=== PATIENT | male | born 2000 | race Caucasian/White ===

== ENCOUNTER 2024-06-25 10:46 | Inpatient (IN) | payer OTHER ==
[~2024-06-25] VITALS: Ht 170.2 cm; Wt 88.2 kg
[2024-06-25 11:35] LABS: HEMOGLOBIN 16.8 g/dl (13.5-17.5); MEAN CORPUSCULAR HGB CONC 34.3 g/dl (32.0-36.5); MEAN CORPUSCULAR VOLUME 87.5 fl (80.0-96.0); PLATELET COUNT, AUTOMATED 257 10^3/uL (150-450); WHITE BLOOD COUNT 6.3 10^3/uL (4.0-10.0)
[2024-06-25 12:00] LABS: AMPHETAMINES LEVEL URINE NEGATIVE (NEGATIVE); BARBITURATES URINE NEGATIVE (NEGATIVE); BENZODIAZEPINES URINE NEGATIVE (NEGATIVE); CANNABINOIDS URINE NEGATIVE (NEGATIVE); COCAINE METABOLITE URINE NEGATIVE (NEGATIVE); METHADONE URINE NEGATIVE (NEGATIVE); OPIATES URINE NEGATIVE (NEGATIVE); PHENCYCLIDINE URINE NEGATIVE (NEGATIVE)
[2024-06-25 12:02] LABS: ETHYL ALCOHOL (ETHANOL) 0.004 % (0.000-0.010)
[2024-06-25 12:04] LABS: SALICYLATE LEVEL < 3.0 MG/DL (<30)
[2024-06-25 12:05] LABS: ALBUMIN 4.7 G/DL (3.2-5.2); ALKALINE PHOSPHATASE 91 U/L (40-129); ALT/SGPT 32 U/L (7.0-40); AST/SGOT 17 U/L (<34); BILIRUBIN,DIRECT 0.2 MG/DL (<0.4); BILIRUBIN,TOTAL 0.6 MG/DL (0.3-1.2); BLOOD UREA NITROGEN 13 MG/DL (9-23); CALCIUM LEVEL 9.5 MG/DL (8.5-10.1); CARBON DIOXIDE LEVEL 28 MMOL/L (20-31); CHLORIDE LEVEL 105 MMOL/L (98-107); CREATININE FOR GFR 0.93 MG/DL (0.70-1.30); GLOMERULAR FILTRATION RATE > 60.0 (>60); GLUCOSE, FASTING 67 MG/DL (60-100); POTASSIUM SERUM 3.8 MMOL/L (3.5-5.1); SODIUM LEVEL 141 MMOL/L (136-145)
[2024-06-25 12:07] LABS: THYROID STIMULATING HORMONE 1.109 uIU/ML (0.55-4.78)
[2024-06-25] MEDS ORDERED: LEXA1TAB2 PO (16:44)
[2024-06-25] MEDS ORDERED: ROZE8TAB16 PO (16:44)
[2024-06-25] MEDS ORDERED: HOME MED LIST COMPLETE! XX SCH (16:45)
[2024-06-25] MEDS ORDERED: MAALOX 30 ML SUSP *UDC PO PRN (18:10)
[2024-06-25] MEDS ORDERED: MOM 30ML SUSPENSION UDC PO PRN (18:10)
[2024-06-25] MEDS ORDERED: IBUPROFEN 400MG TAB PO PRN (18:10)
[2024-06-25] MEDS: diphenhydrAMINE 25MG CAP PO PRN (20:57)
[2024-06-25] MEDS: traZODone 50 MG TAB PO PRN (20:57)
[2024-06-26 00:57] VITALS: BP 138/91; TEMP 97.1; O2SAT 98
[2024-06-26 06:36] VITALS: BP 148/87; TEMP 97.8; O2SAT 100
[2024-06-26] MEDS: ACETAMINOPHEN 325 MG TAB PO PRN (10:03)
[2024-06-26 15:38] VITALS: BP 141/88; TEMP 97.9; O2SAT 98
[2024-06-27 06:39] VITALS: BP 128/67; TEMP 97.4; O2SAT 98
[2024-06-27] MEDS: ESCITALOPRAM OXALATE 10 MG TAB (LEXAPRO) PO SCH (08:41)
[2024-06-27 15:41] VITALS: BP 152/78; TEMP 98; O2SAT 97
[2024-06-28 06:31] VITALS: BP 125/76; TEMP 97.7; O2SAT 98
[2024-06-28] MEDS ORDERED: HYDR-3363 PO (10:28)
== END 2024-06-28 12:05 | disposition home or self-care (01) | DRG 880 ==
LOC: M ED 10:46 → EDBD 10:46 → M PSY 06-26 00:50
PROVIDERS: ADMIT Student in an Organized Health Care Education/Training Program; ATTEND Internal Medicine
DX: F41.0 Panic disorder [episodic paroxysmal anxiety] (principal); F33.2 Major depressive disorder, recurrent severe without psychotic features; R45.851 Suicidal ideations; Z79.899 Other long term (current) drug therapy

== ENCOUNTER → 2024-07-19 | Outpatient (REF) ==
[~2024-07-19] MED LIST: HYDR-3363 PO; LEXA1TAB2 PO; ROZE8TAB16 PO
== END ==
LOC: M PLAIMG 08:04
PROVIDERS: ATTEND Internal Medicine
DX: R07.9 Chest pain, unspecified (principal)